=== PATIENT | female | born 1985 | race Caucasian/White ===

== ENCOUNTER → 2025-01-16 | Outpatient (CLI) | payer OTHER, SELFPAY ==
[2025-01-16 13:17] LABS: AST(SGOT) 17 U/L (<=31); Alanine Aminotransfer ALT/SGPT 18 U/L (<=34); Albumin, Serum 4.4 g/dL (3.5-5.0); Alkaline Phosphatase 131 U/L (35-104); Anion Gap 12 (5-15); BUN 13 mg/dL (4-19); BUN/Creat Ratio 14.2 RATIO (10-20); Calcium,Total 9.7 mg/dL (7.6-11.0); Carbon Dioxide 24.6 mmol/L (21.0-32.0); Chloride 103 mmol/L (98-108); Cholesterol 192 mg/dL (<=200); Follicle Stimulating Hormone 6.8 mIU/mL; Globulin 3.2 g/dL (2.2-4.2); Glucose 102 mg/dL (70-99); Low Density Lipoprotein Calc. 127 mg/dL; Potassium 4.2 mmol/L (3.3-5.1); Triglycerides 137 mg/dL; Very Low Density Lipoprotein 27 mg/dL (5-40); cholesterol:hdl ratio screen 4.75
== END | disposition home or self-care (01) ==
PROVIDERS: Visit Provider Nurse Practitioner Family
DX: Z13.29 Encounter for screening for other suspected endocrine disorder (principal); R23.2 Flushing
CPT/HCPCS: 36415; 80053; 80061; 82670; 83001; 84439; 84443

== ENCOUNTER → 2025-02-28 | Outpatient (CLI) | payer OTHER, SELFPAY ==
--- NOTE | 2025-02-28 10:10 | US_ITS ---
PROCEDURE: TRANSVAGINAL NON- 02/28/2025 REASON FOR EXAM: LOST IUD STRINGS TECHNIQUE: Procedure Code: USTVAG Modality: US Procedure: TRANSVAGINAL NON- FINDINGS: Uterus measures 7.7 x 4.8 x 3.5 cm. Retroflexed uterus. No fibroids. Endometrial stripe is 3 mm and is hyperechoic. Nabothian cysts are noted at the cervix. IUD is within the uterine fundus, within normal limits. Right ovary measures 3.4 x 2.7 x 2.5 cm and left ovary measures 3.4 x 2.3 x 1.9 cm. There is normal bilateral symmetrical blood flow within bilateral ovaries. Follicles are noted within the right ovary. No significant free fluid within the cul-de-sac. US/Transvaginal Non- IMPRESSION: IUD is within the uterine fundus, in appropriate placement. Reading Location: [id number]
== END | disposition home or self-care (01) ==
PROVIDERS: PCP Physician Assistant Medical; Referring Provider Advanced Practice Midwife; Visit Provider Advanced Practice Midwife
DX: T83.32XA Displacement of intrauterine contraceptive device, initial encounter (principal)
CPT/HCPCS: 76830